=== PATIENT | male | born 1955 | race Caucasian/White ===

== ENCOUNTER 2017-07-07 19:29 | Inpatient (IN) | payer OTHER ==
[~2017-07-07] VITALS: Ht 177.8 cm; Wt 77.3 kg
[2017-07-07] MEDS ORDERED: ONDANSETRON 4 MG INJ IV STA (19:43)
[2017-07-07] MEDS ORDERED: KETOROLAC 30 MG INJ IV STA (19:43)
[2017-07-07] MEDS ORDERED: SOD CHLORIDE 0.9% 500 ML IV STA (19:43)
[2017-07-07] MEDS ORDERED: HYDROmorphONE 1 MG/ML SYG IV STA ×2 (19:43→21:23)
[2017-07-07 19:49] VITALS: Ht 177.8 cm; Wt 77.3 kg
[2017-07-07 20:19] LABS: BASOPHILS % 0.3 % (0.0-2.0); EOSINOPHILS # 0.1 10^3/ul (0.0-0.5); EOSINOPHILS % 0.8 % (0.0-7.0); HEMATOCRIT 41.1 % (42.0-52.0); HEMOGLOBIN 14.1 g/dl (14.0-18.0); LYMPHOCYTES # 1.4 10^3/ul (0.8-2.9); LYMPHOCYTES % 19.9 % (15.0-51.0); MEAN CORPUSCULAR HEMOGLOBIN 32.6 pg (29.0-33.0); MEAN CORPUSCULAR HGB CONC 34.3 g/dl (32.0-37.0); MEAN CORPUSCULAR VOLUME 95.1 fl (82.0-101.0); MEAN PLATELET VOLUME 9.4 fl (7.4-10.4); MONOCYTE # 0.6 10^3/ul (0.3-0.9); MONOCYTES % 8.4 % (0.0-11.0); NEUTROPHILS % 70.5 % (39.0-77.0); PLATELET COUNT 278 10^3/UL (140-415); RED BLOOD COUNT 4.32 10^6/ul (4.70-6.10); RED CELL DISTRIBUTION WIDTH 12.5 % (11.5-14.5); WHITE BLOOD COUNT 7.1 10^3/ul (4.8-10.8)
--- NOTE | 2017-07-07 20:36 | ERA ---
ER Documentation Chief Complaint Date/Time DATE: 07/07/17 TIME: 20:32 Chief Complaint RIGHT LOWER SEVERE ABDOMINAL PAIN, GUARDING UNABLE TO SIT UPRIGHT LONG HPI 62-year-old gentleman prior history of kidney stones, neuroblastoma presented to the emergency room with sudden onset of right lower quadrant abdominal pain. The patient has been in the hospital visiting a friend and has not been eating and drinking well. He notes that just prior to arrival a sharp pain to the right inguinal region and now severe 10 out of 10 colicky pain. He denies any testicular pain fevers or chills hematuria dysuria urgency or frequency. ROS All systems reviewed and are negative except as per history of present illness. Allergies Allergies: Coded Allergies: Penicillins (Unverified Allergy, Unknown, 07/07/17) PMhx/Soc History of Surgery: Yes (LAURA, GASTRIC BYPASS) Anesthesia Reaction: No Hx Neurological Disorder: No Hx Respiratory Disorders: Yes (SLEEP APNEA) Hx Cardiac Disorders: No Hx Psychiatric Problems: No Hx Miscellaneous Medical Probl: No Hx Alcohol Use: No Hx Substance Use: No Hx Tobacco Use: No Smoking Status: Never smoker FmHx Family History: No diabetes Physical Exam Vitals Vital Signs Date Time Temp Pulse Resp B/P Pulse Ox O2 Delivery O2 Flow Rate FiO2 07/07/17 20:50 60 18 139/73 100 Room Air 07/07/17 19:49 98.7 70 17 153/74 97 Physical Exam General: Very uncomfortable Head: Normocephalic, atraumatic. Eyes: Pupils equally reactive, EOM intact ENT: Moist mucous membranes Neck: Supple, no lymphadenopathy Respiratory: Lungs clear bilaterally, no distress Cardiovascular: RRR, no murmurs, rubs, or gallops Abdominal: Soft, slight tenderness to the right lower quadrant just below McBurney's point : No inguinal hernia, bilateral descended testicles without focal tenderness or swelling MSK: No edema, no unilateral swelling, 5/5 strength Neurologic: Alert and oriented, moving all extremities, normal speech, no focal weakness, no cerebellar signs Skin: No rash Psych: Normal mood Result Diagram: 07/07/17199907/07/171999 Results 24 hrs Laboratory Tests Test 07/07/17 20:00 White Blood Count 7.110^3/ul Red Blood Count 4.3210^6/ul Hemoglobin 14.1g/dl Hematocrit 41.1% Mean Corpuscular Volume 95.1fl Mean Corpuscular Hemoglobin 32.6pg Mean Corpuscular Hemoglobin Concent 34.3g/dl Red Cell Distribution Width 12.5% Platelet Count 18999^3/UL Mean Platelet Volume 9.4fl Neutrophils % 70.5% Lymphocytes % 19.9% Monocytes % 8.4% Eosinophils % 0.8% Basophils % 0.3% Nucleated Red Blood Cells % 0.0/100WBC Neutrophils # 5.010^3/ul Lymphocytes # 1.410^3/ul Monocytes # 0.610^3/ul Eosinophils # 0.110^3/ul Basophils # 0.010^3/ul Nucleated Red Blood Cells # 0.010^3/ul Sodium Level 140mmol/L Potassium Level 4.2mmol/L Chloride Level 104mmol/L Carbon Dioxide Level 27mmol/L Anion Gap 13 Blood Urea Nitrogen 17mg/dl Creatinine 0.92mg/dl Glucose Level 106mg/dl Calcium Level 8.9mg/dl Total Bilirubin 0.2mg/dl Direct Bilirubin 0.00mg/dl Indirect Bilirubin 0.2mg/dl Aspartate Amino Transf (AST/SGOT) 29IU/L Alanine Aminotransferase (ALT/SGPT) 38IU/L Alkaline Phosphatase 116IU/L Total Protein 7.8g/dl Albumin 4.6g/dl Globulin 3.20g/dl Albumin/Globulin Ratio 1.43 Lipase 169U/L Current Medications Medications (Trade) Dose Ordered Sig/[place] Route PRN Reason Start Time Stop Time Status Last Admin Dose Admin Sodium Chloride (NS) 500 ml @ 500 mls/hr Q1H STAT IV 07/07/17 19:43 07/07/17 20:42 DC 07/07/17 20:10 Hydromorphone HCl (Dilaudid) 1 mg ONCE STAT IV 07/07/17 19:43 07/07/17 19:45 DC 07/07/17 19:50 Ondansetron HCl (Zofran Inj) 4 mg ONCE STAT IV 07/07/17 19:43 07/07/17 19:45 DC 07/07/17 19:48 Ketorolac Tromethamine (Toradol) 30 mg ONCE STAT IV 07/07/17 19:43 07/07/17 19:45 DC 07/07/17 19:49 Hydromorphone HCl (Dilaudid) 1 mg ONCE STAT IV 07/07/17 21:23 07/07/17 21:24 DC Tamsulosin HCl (Flomax) 0.4 mg ONCE ONCE PO 07/07/17 21:30 07/07/17 21:31 DC Ondansetron HCl (Zofran Inj) 4 mg BRIDGE ORDER PRN IV NAUSEA AND/OR VOMITING 07/07/17 22:30 07/08/17 22:29 Acetaminophen (Tylenol Tab) 650 mg ER BRIDGE PRN PO MILD PAIN/FEVER 07/07/17 22:30 07/08/17 22:29 Procedures/MDM EKG, MONITORS, & DIAGNOSTIC IMAGING: CT abdomen and pelvis: IMPRESSION: 1. The irregular mass-like density in the right lower lobe posteriorly measuring 3.5 x 2.2 cm. This may be benign or malignant. 2. Dual lead permanent pacemaker with leads in the right atrium and right ventricle. 3. Status post cholecystectomy. 4. Obstructing 0.2 cm calculus in the distal right ureter just above the right ureteral vesicle junction. 5. Benign left renal cyst measuring 6.6 x 5.1 cm. 6. Diverticulosis of the colon without evidence of diverticulitis. 7. Prior gastric surgery and prior transverse colon surgery. 8. Degenerative changes of the spine. RPTAT: QQ LAB INTERPRETATION: No significant leukocytosis or urinary tract infection MEDICAL DECISION MAKING: The patient presents with sudden onset of colicky right lower quadrant pain. Differential includes ureteral colic, appendicitis, bowel obstruction. Her low clinical concern for acute testicular process such as torsion given normal exam. High suspicion is for renal stone or ureterolithiasis. The patient will benefit from CT imaging given his complex medical history and differential that includes appendicitis. ER COURSE: The patient was given pain control medication Patient continues to have pain requiring repeat dosing of pain medication. We discussed inpatient versus outpatient management and while his small stone is likely to pass with a trial of urination and passage the patient feels uncomfortable going home. Inpatient hospitalization for pain control be reasonable. The patient can have inpatient consultation with urology as needed. No indication emergently in the ER. The patient was notified of lung findings on CT. He was advised to follow-up with primary care physician and verbalizes understanding. I kept the patient and/or family informed of laboratory and diagnostic imaging results throughout the emergency room course. DISPOSITION PLAN: [facility] admission for management of intractable pain secondary to ureterolithiasis CONSULTATION: Accepting care team and consultations: I discussed the current laboratory data, diagnostic imaging and emergency care provided. Admitting team: Dr. Portillo Admitting team indication: Insurance directed Departure Diagnosis: Primary Impression: Ureterolithiasis Additional Impression: Right lower lobe lung mass Condition: Stable VIKTOR BENITO MD Jul 07, 2017 20:36
[2017-07-07 20:42] LABS: ALBUMIN 4.6 g/dl (3.3-4.9); ALBUMIN/GLOBULIN RATIO 1.43; BILIRUBIN,INDIRECT 0.2 mg/dl (0-1.1); BILIRUBIN,TOTAL 0.2 mg/dl (0.2-1.3); CALCIUM 8.9 mg/dl (8.4-10.2); CREATININE 0.92 mg/dl (0.61-1.24); POTASSIUM 4.2 mmol/L (3.5-5.1); TOTAL PROTEIN 7.8 g/dl (6.1-8.1)
--- NOTE | 2017-07-07 20:52 | RADRPT ---
PROCEDURE: CT Abdomen and Pelvis without contrast. CLINICAL INDICATION: Abdominal and pelvic pain. TECHNIQUE: CT scan of the abdomen and pelvis without contrast was performed. Coronal and sagittal reformatted images were obtained from the axial source images. Images were reviewed on a high[employer] PACS workstation. Total exam DLP is 1233.02 mGy-cm. CTDIvol is 18.59 mGy. One or more of the following dose reduction techniques were used: Automated exposure control, adjustment of the mA and/ or kV according to patient size, use of iterative reconstruction technique. COMPARISON: None. FINDINGS: There is an irregular mass-like density in the right lower lobe posteriorly measuring 3.5 x 2.2 cm. The lung bases are otherwise normal. There is no pleural effusion or pericardial effusion. There is a dual lead permanent pacemaker with leads in the right atrium and right ventricle. The heart size i s normal. The liver is normal in size and attenuation. There is no focal hepatic lesion. The gallbladder surgically absent with clips noted in the gallbladder bed. The bile ducts are normal . The spleen is normal in size. There is no focal splenic lesion. Both adrenals are normal with no enlargement or mass. The pancreas is unremarkable with no mass or evidence of pancreatitis. There is no solid renal mass or calculus. There is a 0.2 cm obstructing calculus in the distal right ureter just above the right ureteral vesicle junction. There is mild right hydronephrosis. There is no left hydronephrosis. There is no other urinary tract calculus. There is a benign cyst in the low er left kidney measuring 6.6 x 5.1 cm. The abdominal aorta is not dilated. There is no retroperitoneal lymphadenopathy or mass. There is no pelvic lymphadenopathy or mass. The bladder and distal ureters are normal. The periappendiceal region is unremarkable with no evidence of appendicitis. There is diverticulosis of the colon without evidence of diverticulitis. The bowel and mesentery are otherwise normal. There has been prior gastric surgery with surgical jareth noted. In addition, th ere has been prior surgery of the transverse colon with surgical jareth and clips. There is no free fluid or free gas. There are degenerative changes of the spine. There is no fracture or lytic lesion. IMPRESSION: 1. The irregular mass-like density in the right lower lobe posteriorly measuring 3.5 x 2.2 cm. This may be benign or malignant. 2. Dual lead permanent pacemaker with leads in the right atrium and right ventricle. 3. Status post cholecystectomy. 4. Obstructing 0.2 cm calculus in the distal right ureter just above the right ureteral vesicle courtney ction. 5. Benign left renal cyst measuring 6.6 x 5.1 cm. 6. Diverticulosis of the colon without evidence of diverticulitis. 7. Prior gastric surgery and prior transverse colon surgery. 8. Degenerative changes of the spine. RPTAT: QQ .Rolan Shelby MD, MD Date Time Electronically viewed and signed by .Rolan Shelby MD, MD on 07/07/2017 20:52 .R/
[2017-07-07] MEDS ORDERED: TAMSULOSIN (SR) 0.4 MG CAP PO ONE (21:30)
[2017-07-07] MEDS ORDERED: ONDANSETRON 4 MG INJ IV PRN (22:30)
[2017-07-07] MEDS ORDERED: ACETAMINOPHEN 325 MG TAB PO PRN (22:30)
[2017-07-07 22:33] LABS: ADD UMIC YES; UR ASCORBIC ACID NEGATIVE (NEGATIVE); UR BILIRUBIN (Dip) NEGATIVE (NEGATIVE); UR BLOOD (Dip) 3+ mg/dL (NEGATIVE); UR CLARITY SLIGHTLY CLOUDY (CLEAR); UR COLOR YELLOW (YELLOW); UR GLUCOSE (Dip) NEGATIVE (NEGATIVE); UR KETONES (Dip) NEGATIVE (NEGATIVE); UR LEUKOCYTE ESTERASE (Dip) NEGATIVE Leu/ul (NEGATIVE); UR MUCUS MANY /HPF (NONE SEEN); UR NITRITE (Dip) NEGATIVE (NEGATIVE); UR RBC 137 /HPF (0-5); UR TOTAL PROTEIN (Dip) NEGATIVE (NEGATIVE); UR UROBILINOGEN (Dip) 1+ mg/dL (NEGATIVE)
[2017-07-07 23:00] VITALS: BP 152/76; RESP 19
[2017-07-07] MEDS ORDERED: POTA5TAB PO (23:26)
[2017-07-07] MEDS ORDERED: ESZO3TAB PO (23:26)
[2017-07-07] MEDS ORDERED: METH36TA4 PO (23:26)
[2017-07-07] MEDS ORDERED: ESOM40CA PO (23:26)
[2017-07-07] MEDS ORDERED: CYAN500T46 PO (23:26)
[2017-07-07] MEDS ORDERED: CHOL500062 PO (23:26)
[2017-07-07] MEDS ORDERED: LAMO200T PO (23:26)
[2017-07-08] MEDS ORDERED: ZOLPIDEM 5 MG TAB PO PRN ×2 (00:30)
[2017-07-08] MEDS ORDERED: ONDANSETRON 4 MG INJ IV PRN (00:30)
[2017-07-08] MEDS: SOD CHLORIDE 0.9% 1,000 ML IV SCH ×5 (00:58→21:34)
[2017-07-08] MEDS ORDERED: LORAZEPAM 2 MG INJ IV ONE (01:30)
[2017-07-08] MEDS: morphine 4 MG/ML VIAL IV PRN ×2 (01:31→11:59)
[2017-07-08 02:39] VITALS: BP 150/82; RESP 18
[2017-07-08 07:28] LABS: BASOPHILS % 0.3 % (0.0-2.0); EOSINOPHILS % 0.1 % (0.0-7.0); HEMATOCRIT 37.5 % (42.0-52.0); HEMOGLOBIN 12.8 g/dl (14.0-18.0); LYMPHOCYTES # 0.7 10^3/ul (0.8-2.9); LYMPHOCYTES % 9.5 % (15.0-51.0); MEAN CORPUSCULAR HEMOGLOBIN 32.8 pg (29.0-33.0); MEAN CORPUSCULAR HGB CONC 34.1 g/dl (32.0-37.0); MEAN CORPUSCULAR VOLUME 96.2 fl (82.0-101.0); MEAN PLATELET VOLUME 9.4 fl (7.4-10.4); MONOCYTE # 0.7 10^3/ul (0.3-0.9); MONOCYTES % 8.8 % (0.0-11.0); NEUTROPHIL # 6.3 10^3/ul (1.6-7.5); PLATELET COUNT 195 10^3/UL (140-415); RED CELL DISTRIBUTION WIDTH 12.8 % (11.5-14.5); WHITE BLOOD COUNT 7.8 10^3/ul (4.8-10.8)
--- NOTE | 2017-07-08 07:46 | HP ---
Date/Time of Note Date/Time of Note DATE: 07/08/17 TIME: 07:30 Assessment/Plan VTE Prophylaxis VTE Prophylaxis Intervention: SCD's Lines/Catheters IV [facility]from [facility] Saline Lock Assessment/Plan Assessment/Plan 1. Right distal ureteral obstructing calculus -IV fluids -Flomax -Straining of urine -Urology consult -Pain management 2. Right lower lung mass -Patient reported being told that he had abnormal growth on the left side of his lung 35 years ago, but not on the right. His recent chest imaging is from 4 or 5 years ago at [facility] where he was intubated for gastric bypass surgery. -Will attempt to get records of his chest imaging from [facility], then will obtain additional chest imaging -Pulmonary consult 3. History of pacemaker -No acute issue here HPI/ROS Admit Date/Time Admit Date/Time Jul 07, 2017 at 22:06 Hx of Present Illness This is a 62-year-old male with a history of left nephrolithiasis, pacemaker, gastric bypass surgery, nasal neuroblastoma status post surgical removal in 2009 and probable history of pericarditis. Patient has been at the bedside of family member that is admitted here to [facility] for the past 4 days. Today while he was at the patient's room, he started experiencing right lower quadrant abdominal pain for which he was sent to the ER. Denied nausea/vomiting, fever or chills. CT abdomen pelvis showed Obstructing 0.2 cm calculus in the distal right ureter just above the right ureteral vesicle junction, irregular mass-like density in the right lower lobe posteriorly measuring 3.5 x 2.2 cm, diverticulosis without diverticulitis and prior gastric surgery and prior transverse colon surgery. He said he was diagnosed with his left kidney/ureteral stone 5 years ago which was managed to with extracorporeal shockwave therapy. No stent was placed at that time. He also stated that about 35 years ago he was told that he had abnormal growth on the left side of his lungs. PMH/Family/Social Social History Smoking Status: Never smoker Exam/Review of Systems Vital Signs Vitals Vital Signs Date Time Temp Pulse Resp B/P Pulse Ox O2 Delivery O2 Flow Rate FiO2 07/08/17 02:39 97.4 73 18 150/82 96 07/07/17 22:15 Room Air Intake and Output 07/07/17 07/07/17 07/08/17 15:00 23:00 07:00 Intake Total 900 ml Balance 900 ml Exam Constitutional: alert, oriented, well developed Head: atraumatic, normocephalic Eyes: EOMI, PERRL Respiratory: clear to auscultation, normal air movement Cardiovascular: nl pulses, regular rate and rhythm Gastrointestinal: other (Mild right lower quadrant tenderness, with no guarding no rigidity), soft Extremities: normal pulses Labs Result Diagram: 07/07/17199907/07/171999 Medications Medications Current Medications Lamotrigine (Lamictal) 200 mg DAILY PO ; Start 07/08/17 at 09:00 Potassium Citrate (Urocit-K) 5 meq DAILY PO ; Start 07/08/17 at 09:00 Miscellaneous Information 36 mg DAILY XX ; Start 07/08/17 at 09:00; Status UNV Famotidine 20 mg 20 mg DAILY PO ; Start 07/08/17 at 09:00 Sodium Chloride (NS) 1,000 ml @ 150 mls/hr Q6H40M IV Last administered on 00:58; Admin Dose 150 MLS/HR; Start 07/08/17 at 00:30 Tamsulosin HCl (Flomax) 0.4 mg HS PO ; Start 07/08/17 at 21:00 Morphine Sulfate (morphine) 4 mg Q4H PRN IV pain Last administered on 01:31; Admin Dose 4 MG; Start 07/08/17 at 00:30 Ondansetron HCl (Zofran Inj) 4 mg Q6H PRN IV NAUSEA AND/OR VOMITING; Start 07/15 at 00:30 Lorazepam (Ativan) 1 mg Q4H PRN PO anxiety; Start 07/08/17 at 01:30 Influenza Virus Vaccine (Fluzone) 0.5 ml ONCE ONCE IM* ; Start 07/09/17 at 09: 00; Stop 07/09/17 at 09:01 KAREEN CORLEY MD Jul 08, 2017 07:43
[2017-07-08 07:50] LABS: ALBUMIN 3.5 g/dl (3.3-4.9); ALBUMIN/GLOBULIN RATIO 1.16; BILIRUBIN,INDIRECT 0.6 mg/dl (0-1.1); BILIRUBIN,TOTAL 0.6 mg/dl (0.2-1.3); CALCIUM 8.3 mg/dl (8.4-10.2); CREATININE 1.22 mg/dl (0.61-1.24); MAGNESIUM 1.8 mg/dl (1.7-2.5); PHOSPHORUS 3.6 mg/dl (2.5-4.9); POTASSIUM 4.4 mmol/L (3.5-5.1); TOTAL PROTEIN 6.5 g/dl (6.1-8.1)
[2017-07-08 08:00] VITALS: BP 113/55; PULSE 79; RESP 16
[2017-07-08] MEDS: POTASSIUM CITRATE (SR) 5 MEQ TAB PO SCH (08:41)
[2017-07-08] MEDS: FAMOTIDINE 20 MG TAB PO SCH (08:41)
[2017-07-08] MEDS: LAMOTRIGINE 100 MG TAB PO SCH (08:41)
[2017-07-08] MEDS ORDERED: CITRACAL PO (08:48)
[2017-07-08] MEDS ORDERED: METHYLPHENIDATE HCL 36 MG XX SCH (09:00)
[2017-07-08 14:00] VITALS: BP 118/59; RESP 18
--- NOTE | 2017-07-08 16:10 | PN ---
Date/Time of Note Date/Time of Note DATE: 07/08/17 TIME: 16:01 Assessment/Plan VTE Prophylaxis VTE Prophylaxis Intervention: SCD's Lines/Catheters IV Catheter Type (from Nrsg): Peripheral IV Assessment/Plan Assessment/Plan 1. Right distal ureteral obstructing calculus, IVF, flomax, pain management 2. Right lower lung mass, discussed with Dr. Shelby, will do CT with contrast after stone is out 3. History of pacemaker, No acute issue here Subjective 24 Hr Interval Summary Free Text/Dictation still with intermittent pain Exam/Review of Systems Vital Signs Vitals Vital Signs Date Time Temp Pulse Resp B/P Pulse Ox O2 Delivery O2 Flow Rate FiO2 07/08/17 14:00 98.1 62 18 118/59 95 07/08/17 08:00 Room Air Intake and Output 07/07/17 07/07/17 07/08/17 15:00 23:00 07:00 Intake Total 900 ml Balance 900 ml Exam Constitutional: alert, oriented, well developed Psych: nl mood/affect, no complaints Head: atraumatic, normocephalic Eyes: EOMI, nl conjunctiva, nl lids ENMT: nl external ears & nose, nl lips & teeth, nl nasal mucosa & septum Neck: jvd, non-tender, supple Respiratory: clear to auscultation, normal air movement, No congested cough, No crackles/rales, No diminished breath sounds, No intercostal retraction, No labored breathing, No other, No respirations, No tactile fremitus, No wheezing Cardiovascular: nl pulses, regular rate and rhythm, No S3, No S4, No bruits, No diastolic murmur, No edema, No gallop, No irregular rhythm, No jugular venous distention (JVD), No murmurs/extra sounds, No other, No rub, No systolic murmur Gastrointestinal: nl liver, spleen, non-tender, soft, No ascites, No bowel sounds, No distended, No firm, No hepatomegaly, No mass , No other, No rebound or guarding, No splenomegaly, No surgical scars, No tender Musculoskeletal: nl extremities to inspection, No joint tenderness, No muscle tone, No muscle weakness, No nl gait and stance, No other, No range of motion, No spine non-tender, No swelling Extremities: normal pulses, No calf tenderness, No clubbing, No cyanosis, No edema, No other, No palpable cord, No pitting pedal edema, No tenderness Neurological: POWDER SHOVELER II-XII intact, nl speech, nl strength Results Result Diagram: 07/08/17 0616 07/08/17 0616 Results 24 hrs Laboratory Tests Test 07/07/17 20:00 07/07/17 22:00 07/08/17 06:16 White Blood Count 7.1 7.8 Red Blood Count 4.32 L 3.90 L Hemoglobin 14.1 12.8 L Hematocrit 41.1 L 37.5 L Mean Corpuscular Volume 95.1 96.2 Mean Corpuscular Hemoglobin 32.6 32.8 Mean Corpuscular Hemoglobin Concent 34.3 34.1 Red Cell Distribution Width 12.5 12.8 Platelet Count 278 195 # Mean Platelet Volume 9.4 9.4 Neutrophils % 70.5 81.0 H Lymphocytes % 19.9 9.5 L Monocytes % 8.4 8.8 Eosinophils % 0.8 0.1 Basophils % 0.3 0.3 Nucleated Red Blood Cells % 0.0 0.0 Neutrophils # 5.0 6.3 Lymphocytes # 1.4 0.7 L Monocytes # 0.6 0.7 Eosinophils # 0.1 0.0 Basophils # 0.0 0.0 Nucleated Red Blood Cells # 0.0 0.0 Sodium Level 140 136 Potassium Level 4.2 4.4 Chloride Level 104 104 Carbon Dioxide Level 27 28 Anion Gap 13 8 Blood Urea Nitrogen 17 18 Creatinine 0.92 1.22 Glucose Level 106 102 Calcium Level 8.9 8.3 L Total Bilirubin 0.2 0.6 Direct Bilirubin 0.00 0.00 Indirect Bilirubin 0.2 0.6 Aspartate Amino Transf (AST/SGOT) 29 31 Alanine Aminotransferase (ALT/SGPT) 38 33 Alkaline Phosphatase 116 91 Total Protein 7.8 6.5 # Albumin 4.6 3.5 # Globulin 3.20 3.00 Albumin/Globulin Ratio 1.43 1.16 Lipase 169 Urine Color YELLOW Urine Clarity SLIGHTLY CLOUDY A Urine pH 5.0 Urine Specific Mitchell 1.030 Urine Ketones NEGATIVE Urine Nitrite NEGATIVE Urine Bilirubin NEGATIVE Urine Urobilinogen 1+ H Urine Leukocyte Esterase NEGATIVE Urine Microscopic RBC 137 H Urine Microscopic WBC 3 Urine Mucus MANY A Urine Hemoglobin 3+ H Urine Glucose NEGATIVE Urine Total Protein NEGATIVE Phosphorus Level 3.6 Magnesium Level 1.8 Medications Medications Current Medications Lamotrigine (Lamictal) 200 mg DAILY PO Last administered on 07/08/17 08:41; Admin Dose 200 MG; Start 07/08/17 at 09:00 Potassium Citrate (Urocit-K) 5 meq DAILY PO Last administered on 07/08/17 08: 41; Admin Dose 5 MEQ; Start 07/08/17 at 09:00 Miscellaneous Information 36 mg DAILY XX ; Start 07/08/17 at 09:00; Status UNV Famotidine 20 mg 20 mg DAILY PO Last administered on 07/08/17 08:41; Admin Dose 20 MG; Start 07/08/17 at 09:00 Sodium Chloride (NS) 1,000 ml @ 150 mls/hr Q6H40M IV Last administered on 08:42; Admin Dose 150 MLS/HR; Start 07/08/17 at 00:30 Tamsulosin HCl (Flomax) 0.4 mg HS PO ; Start 07/08/17 at 21:00 Morphine Sulfate (morphine) 4 mg Q4H PRN IV pain Last administered on 11:59; Admin Dose 4 MG; Start 07/08/17 at 00:30 Ondansetron HCl (Zofran Inj) 4 mg Q6H PRN IV NAUSEA AND/OR VOMITING; Start 07/15 at 00:30 Lorazepam (Ativan) 1 mg Q4H PRN PO anxiety; Start 07/08/17 at 01:30 Influenza Virus Vaccine (Fluzone) 0.5 ml ONCE ONCE IM* ; Start 07/09/17 at 09: 00; Stop 07/09/17 at 09:01 DAVY KUO MD Jul 08, 2017 16:10
[2017-07-08] MEDS: LORAZEPAM 1 MG TAB PO PRN (16:33)
[2017-07-08 20:10] VITALS: BP 126/72; RESP 18
[2017-07-08] MEDS: TAMSULOSIN (SR) 0.4 MG CAP PO SCH (21:34)
[2017-07-09 02:38] VITALS: BP 121/68; RESP 18
[2017-07-09] MEDS: SOD CHLORIDE 0.9% 1,000 ML IV SCH ×4 (03:51→17:25)
[2017-07-09 08:01] VITALS: BP 136/68; RESP 17
[2017-07-09] MEDS ORDERED: INFLUENZA VIRUS VACCINE 0.5 ML (DISPENSING) IM* ONE (09:00)
[2017-07-09] MEDS: LAMOTRIGINE 100 MG TAB PO SCH (09:24)
[2017-07-09] MEDS: POTASSIUM CITRATE (SR) 5 MEQ TAB PO SCH (09:24)
[2017-07-09] MEDS: FAMOTIDINE 20 MG TAB PO SCH (09:24)
[2017-07-09] MEDS: DOCUSATE SODIUM 100 MG CAP PO SCH ×2 (10:57→21:39)
[2017-07-09] MEDS: CALCIUM CARBONATE 1.25 GM TAB PO SCH (11:03)
--- NOTE | 2017-07-09 15:33 | PN ---
Date/Time of Note Date/Time of Note DATE: 07/09/17 TIME: 15:32 Assessment/Plan VTE Prophylaxis VTE Prophylaxis Intervention: SCD's Lines/Catheters IV Catheter Type (from Nrsg): Peripheral IV Assessment/Plan Assessment/Plan 1. Right distal ureteral obstructing calculus, IVF, flomax, pain management, renal ultrasound tomorrow if not stone passed 2. Right lower lung mass, discussed with Dr. Shelby, will do CT with contrast after stone is out 3. History of pacemaker, No acute issue here Subjective 24 Hr Interval Summary Free Text/Dictation minimal pain but no stone passed yet Exam/Review of Systems Vital Signs Vitals Vital Signs Date Time Temp Pulse Resp B/P Pulse Ox O2 Delivery O2 Flow Rate FiO2 07/09/17 08:01 98.7 63 17 136/68 95 07/08/17 08:00 Room Air Intake and Output 07/08/17 07/08/17 07/09/17 15:00 23:00 07:00 Intake Total 2060 ml 2130 ml Output Total 550 ml 1100 ml Balance 1510 ml 1030 ml Exam Constitutional: alert, oriented, well developed Psych: nl mood/affect, no complaints Head: atraumatic, normocephalic Eyes: EOMI, nl conjunctiva, nl lids ENMT: nl external ears & nose, nl lips & teeth, nl nasal mucosa & septum Neck: non-tender, supple Respiratory: clear to auscultation, normal air movement, No congested cough, No crackles/rales, No diminished breath sounds, No intercostal retraction, No labored breathing, No other, No respirations, No tactile fremitus, No wheezing Cardiovascular: nl pulses, regular rate and rhythm, No S3, No S4, No bruits, No diastolic murmur, No edema, No gallop, No irregular rhythm, No jugular venous distention (JVD), No murmurs/extra sounds, No other, No rub, No systolic murmur Gastrointestinal: nl liver, spleen, non-tender, soft, No ascites, No bowel sounds, No distended, No firm, No hepatomegaly, No mass , No other, No rebound or guarding, No splenomegaly, No surgical scars, No tender Musculoskeletal: nl extremities to inspection, No joint tenderness, No muscle tone, No muscle weakness, No nl gait and stance, No other, No range of motion, No spine non-tender, No swelling Extremities: normal pulses, No calf tenderness, No clubbing, No cyanosis, No edema, No other, No palpable cord, No pitting pedal edema, No tenderness Neurological: AMBULANCE OFFICER II-XII intact, nl mental status, nl speech, nl strength Skin: nl turgor Lymph: nl lymph nodes Results Result Diagram: 07/08/1716 07/08/1716 Medications Medications Current Medications Lamotrigine (Lamictal) 200 mg DAILY PO Last administered on 07/09/17 09:24; Admin Dose 200 MG; Start 07/08/17 at 09:00 Potassium Citrate (Urocit-K) 5 meq DAILY PO Last administered on 07/09/17 09: 24; Admin Dose 5 MEQ; Start 07/08/17 at 09:00 Miscellaneous Information 36 mg DAILY XX ; Start 07/08/17 at 09:00; Status UNV Famotidine 20 mg 20 mg DAILY PO Last administered on 07/09/17 09:24; Admin Dose 20 MG; Start 07/08/17 at 09:00 Sodium Chloride (NS) 1,000 ml @ 150 mls/hr Q6H40M IV Last administered on 10:57; Admin Dose 150 MLS/HR; Start 07/08/17 at 00:30 Tamsulosin HCl (Flomax) 0.4 mg HS PO Last administered on 07/08/17 21:34; Admin Dose 0.4 MG; Start 07/08/17 at 21:00 Morphine Sulfate (morphine) 4 mg Q4H PRN IV pain Last administered on 11:59; Admin Dose 4 MG; Start 07/08/17 at 00:30 Ondansetron HCl (Zofran Inj) 4 mg Q6H PRN IV NAUSEA AND/OR VOMITING; Start 07/15 at 00:30 Lorazepam (Ativan) 1 mg Q4H PRN PO anxiety Last administered on 07/08/17 16: 33; Admin Dose 1 MG; Start 07/08/17 at 01:30 Calcium Carbonate (Oyster Shell Calcium) 1.25 gm DAILY PO ; Start 07/09/17 at 12:00 Miscellaneous Information (*Order Clarification Bulletin) MEDICATION REQUIRES CLARIFICATI... Q8H XX ; Start 07/09/17 at 08:00 Docusate Sodium (Colace) 100 mg BID PO Last administered on 07/09/17t 10:57; Admin Dose 100 MG; Start 07/09/17 at 10:00 DAVY KUO MD Jul 09, 2017 15:33
[2017-07-09 15:37] VITALS: BP 158/89; RESP 20
[2017-07-09] MEDS: LORAZEPAM 1 MG TAB PO PRN (17:25)
[2017-07-09 20:38] VITALS: BP 128/67; RESP 18
[2017-07-09] MEDS: morphine 4 MG/ML VIAL IV PRN (21:39)
[2017-07-09] MEDS: TAMSULOSIN (SR) 0.4 MG CAP PO SCH (21:39)
[2017-07-10] MEDS: LORAZEPAM 1 MG TAB PO PRN (00:13)
[2017-07-10] MEDS: SOD CHLORIDE 0.9% 1,000 ML IV SCH ×4 (00:14→17:54)
[2017-07-10 02:38] VITALS: BP 133/83; RESP 18
[2017-07-10 06:18] LABS: CALCIUM 8.2 mg/dl (8.4-10.2); CREATININE 1.31 mg/dl (0.61-1.24)
[2017-07-10 07:26] VITALS: BP 112/62; RESP 18
[2017-07-10] MEDS: CALCIUM CARBONATE 1.25 GM TAB PO SCH (09:21)
[2017-07-10] MEDS: DOCUSATE SODIUM 100 MG CAP PO SCH ×2 (09:21→21:50)
[2017-07-10] MEDS: POTASSIUM CITRATE (SR) 5 MEQ TAB PO SCH (09:21)
[2017-07-10] MEDS: FAMOTIDINE 20 MG TAB PO SCH (09:21)
[2017-07-10] MEDS: LAMOTRIGINE 100 MG TAB PO SCH (09:22)
--- NOTE | 2017-07-10 14:26 | PN ---
Date/Time of Note Date/Time of Note DATE: 07/10/17 TIME: 14:23 Assessment/Plan VTE Prophylaxis VTE Prophylaxis Intervention: SCD's Lines/Catheters IV Catheter Type (from Nrsg): Peripheral IV Assessment/Plan Assessment/Plan 1. Right distal ureteral obstructing calculus, IVF, flomax, pain management, renal ultrasound, urology 2. Right lower lung mass, discussed with Dr. Shelby, will do CT with contrast after stone is out 3. History of pacemaker, No acute issue here 4. Acute renal injury from ureteral stone, follow up with BMP/US Subjective 24 Hr Interval Summary Free Text/Dictation minimal pain better on anxiety denies homicidal or suicidal Exam/Review of Systems Vital Signs Vitals Vital Signs Date Time Temp Pulse Resp B/P Pulse Ox O2 Delivery O2 Flow Rate FiO2 07/10/17 07:26 98.4 61 18 112/62 96 07/08/17 08:00 Room Air Intake and Output 07/09/17 07/09/17 07/10/17 15:00 23:00 07:00 Intake Total 2020 ml 870 ml 1580 ml Output Total 900 ml 1200 ml Balance 2020 ml -30 ml 380 ml Exam Constitutional: alert, oriented, well developed Head: atraumatic, normocephalic Eyes: EOMI, nl conjunctiva, nl lids ENMT: nl external ears & nose, nl lips & teeth, nl nasal mucosa & septum Neck: non-tender, supple Respiratory: clear to auscultation, normal air movement, No congested cough, No crackles/rales, No diminished breath sounds, No intercostal retraction, No labored breathing, No other, No respirations, No tactile fremitus, No wheezing Cardiovascular: nl pulses, regular rate and rhythm, No S3, No S4, No bruits, No diastolic murmur, No edema, No gallop, No irregular rhythm, No jugular venous distention (JVD), No murmurs/extra sounds, No other, No rub, No systolic murmur Gastrointestinal: nl liver, spleen, non-tender, soft, No ascites, No bowel sounds, No distended, No firm, No hepatomegaly, No mass , No other, No rebound or guarding, No splenomegaly, No surgical scars, No tender Musculoskeletal: nl extremities to inspection, No joint tenderness, No muscle tone, No muscle weakness, No nl gait and stance, No other, No range of motion, No spine non-tender, No swelling Extremities: normal pulses, No calf tenderness, No clubbing, No cyanosis, No edema, No other, No palpable cord, No pitting pedal edema, No tenderness Neurological: RAILROADER II-XII intact, nl mental status, nl speech, nl strength Skin: nl turgor Lymph: nl lymph nodes Results Result Diagram: 07/08/17 0616 07/10/17 0521 Results 24 hrs Laboratory Tests Test 07/10/17 05:21 Sodium Level 140 Potassium Level 4.0 Chloride Level 108 Carbon Dioxide Level 28 Anion Gap 8 Blood Urea Nitrogen 14 Creatinine 1.31 H Glucose Level 83 Calcium Level 8.2 L Medications Medications Current Medications Lamotrigine (Lamictal) 200 mg DAILY PO Last administered on 07/10/17 09:22; Admin Dose 200 MG; Start 07/08/17 at 09:00 Potassium Citrate (Urocit-K) 5 meq DAILY PO Last administered on 07/10/17 09: 21; Admin Dose 5 MEQ; Start 07/08/17 at 09:00 Miscellaneous Information 36 mg DAILY XX ; Start 07/08/17 at 09:00; Status UNV Famotidine 20 mg 20 mg DAILY PO Last administered on 07/10/17 09:21; Admin Dose 20 MG; Start 07/08/17 at 09:00 Sodium Chloride (NS) 1,000 ml @ 150 mls/hr Q6H40M IV Last administered on 12:45; Admin Dose 150 MLS/HR; Start 07/08/17 at 00:30 Tamsulosin HCl (Flomax) 0.4 mg HS PO Last administered on 07/09/17 21:39; Admin Dose 0.4 MG; Start 07/08/17 at 21:00 Morphine Sulfate (morphine) 4 mg Q4H PRN IV pain Last administered on 21:39; Admin Dose 4 MG; Start 07/08/17 at 00:30 Ondansetron HCl (Zofran Inj) 4 mg Q6H PRN IV NAUSEA AND/OR VOMITING; Start 07/15 at 00:30 Lorazepam (Ativan) 1 mg Q4H PRN PO anxiety Last administered on 07/10/17 00: 13; Admin Dose 1 MG; Start 07/08/17 at 01:30 Calcium Carbonate (Oyster Shell Calcium) 1.25 gm DAILY PO Last administered on 07/10/17 09:21; Admin Dose 1.25 GM; Start 07/09/17 at 12:00 Miscellaneous Information (*Order Clarification Bulletin) MEDICATION REQUIRES CLARIFICATI... Q8H XX ; Start 07/09/17 at 08:00 Docusate Sodium (Colace) 100 mg BID PO Last administered on 07/10/17 09:21; Admin Dose 100 MG; Start 07/09/17 at 10:00 DAVY KUO MD Jul 10, 2017 14:26
--- NOTE | 2017-07-10 15:17 | RADRPT ---
PROCEDURE: Retroperitoneal US. CLINICAL INDICATION: Flank pain TECHNIQUE: Multiple sonographic images of the kidneys and retroperitoneum were obtained. The imag es were reviewed on a PACS workstation. COMPARISON: CT 07/07/2017 FINDINGS: The kidneys are normal in size, contour, cortical thickness and cortical echogenicity. The right kidney measures 12 cm. The left kidney measures 11.5 cm. There are 2 small simple cysts in the right kidney measuring up to 2.2 cm. There is a large simple cyst in the lower pole of the left kidney measuring 5.6 cm. No kidney stones are visualized. There is no evidence for hydronephrosis. The urinary bladder is normal. RPTAT: AA IMPRESSION: No evidence of hydronephrosis. Bilateral simple kidney cysts. .Raman Orozco MD, MD Date Time Electronically viewed and signed by .Raman Orozco MD, MD on 07/10/2017 15:17 .S/
[2017-07-10] MEDS ORDERED: BISACODYL (EC) 5 MG TAB PO ONE (16:30)
[2017-07-10 18:09] VITALS: BP 171/97; RESP 20
--- NOTE | 2017-07-10 20:39 | RADRPT ---
PROCEDURE: XR Abdomen. CLINICAL INDICATION: Abdomen pain. TECHNIQUE: AP supine abdomen x-ray. COMPARISON: CT scan of the abdomen pelvis 10 07/07/2017 FINDINGS: The bowel gas pattern is normal with no evidence of obstruction. Surgical clips are present in the upper abdomen. There are no abnormal calcifications overlying the urinary tracts. The osseus structures are unremarkable. IMPRESSION: 1. No evidence of obstruction. 2. Prior upper abdomen surgery. 3. Otherwise unremarkable supine abdomen radiograph. RPTAT: QQ .Rolan Shelby MD, MD Date Time Electronically viewed and signed by .Rolan Shelby MD, MD on 07/10/2017 20:39 .R/
--- NOTE | 2017-07-10 21:16 | CONS ---
DATE OF ADMISSION: 07/07/2017 DATE OF CONSULTATION: 07/10/2017 REQUESTING PHYSICIANS: Dr. Portillo and Dr. Ramirez. HISTORY OF PRESENT ILLNESS: This is a 62-year-old male who came in to [place] to help a family heather smith who is sick and in fact the family member is here at [facility] 5th floor. While the patient was helping his relative, he suddenly felt severe pain in the right side, and the patient was taken to the emergency room where he underwent a CT scan of the abdomen and pelvis and t hat showed a 2 mm stone in the distal right ureter. Therefore, the patient was admitted, and the pa tient has been voiding well and the straining of urine has not resulted in any stone passing yet. PAST MEDICAL HISTORY: The past medical history of this patient is he has had a history of kidney st one many years back and at that time, he did pass it. They gave him lithotripsy to it. The patient does have a history of gastric bypass surgery and has been on calcium carbonate and also on potassi um citrate to try to prevent a kidney stone again. 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 It seems the patient was wolfgang that they found it too early and also they told him that he may well have been cured. When he was in [place], he also was found to have some lung issues and probably some mucus, and the CT scan that he had here showed an area in th e right lung at the posterior area that may be a benign tumor; however, the patient does have the re port from his x-rays at [place] and it may be related to the same issue that he has had before. I discussed that with him, and he will take a copy of the CT scan and give it to his doctor in [facility] and they could compare them and see if this is something that needs to be further worked up or if it is the same thing that he has had before. The patient's other significant past medical history a gain is gastric bypass surgery, the kidney stone on the left side before and the history of pacemake r. The patient also has had a cholecystectomy, and there is a left renal cyst measuring 6.6 cm x 5. 1 cm, diverticulosis of the colon without evidence of diverticulitis, gastric bypass surgery and deg enerative changes of the spine. The mass in the lung is irregular and in the right lower lobe poste riorly measuring 3.5 x 2.2 cm. MEDICATIONS: That he is on right now include calcium carbonate, Colace, tamsulosin, , potassiu m citrate, Pepcid, Ativan, morphine and Ambien. PHYSICAL EXAMINATION: GENERAL: Reveals a 62-year-old male who at present seems to be comfortable. VITAL SIGNS: His temperature is 98.0, pulse is 65, respirations 20, blood pressure 171/97. ABDOMEN: Soft and no abdominal mass is palpable. GENITALIA: External genitalia are normal. EXTREMITIES: Reveal no edema. LABORATORY DATA: His CBC shows a white count of 7.8, hemoglobin 12.8, hematocrit 37.5, platelet cou nt 195,000. BUN is 14, creatinine 1.31. Electrolytes are normal. The urinalysis showed 3+ occult blood, much mucus in the urine. IMPRESSION: Distal right ureteral stone measuring about 2 mm in size. RECOMMENDATION: This patient should be able to pass the stone, if he has not passed it yet. He alr edmond had a KUB and the report on that is still pending. We will repeat the KUB in a.m. and also con tinue his pain medication and strain the urine. I discussed with him the issue of his lungs and he got the report from [place] and most likely what would happen is that he needs to have a copy of tx s CT scan here and the report of the CT scan and then he could have it checked in [place] and [place] re it to his prior workup that he has had [place] for the same issue. Urologically-mcguire, just long jack a lot of water, pain medication, strain the urine and he should be able to pass this stone as the stone is 2 mm in size. Dictated By: ROGELIO SANCHEZ/KATHE Conf#: [id number] DID#: [id number]
[2017-07-10] MEDS: TAMSULOSIN (SR) 0.4 MG CAP PO SCH (21:50)
[2017-07-10] MEDS: morphine 4 MG/ML VIAL IV PRN (21:50)
[2017-07-10 21:55] VITALS: BP 145/82; RESP 16
[2017-07-11] MEDS: SOD CHLORIDE 0.9% 1,000 ML IV SCH ×4 (01:31→21:39)
[2017-07-11 03:04] VITALS: BP 147/78; RESP 16
[2017-07-11 08:13] VITALS: BP 134/77; RESP 17
--- NOTE | 2017-07-11 09:17 | PN ---
DATE: 07/11/2017 SUBJECTIVE: The patient had a pain during the night, and he feels pressure in the suprapubic area. He does have a distal right ureteral stone measuring about 2 mm near the ureterovesical junction, b ut he has not passed it yet. OBJECTIVE: VITAL SIGNS: His temperature is 98.1, blood pressure 134/77, respirations 17 and the pulse is 63. GENERAL: The head and neck are unremarkable. ABDOMEN: Soft. There is some suprapubic tenderness. External genitalia normal. EXTREMITIES: No edema. LABORATORY DATA: CBC shows a white count 7.8, hemoglobin 12.8. The BUN is 14, creatinine 1.31. El ectrolytes are normal. The patient had a KUB and that did not show the stone as reported by the rad iologist. IMPRESSION: Distal right ureteral stone. PLAN: To continue the straining of the urine. Continue the Flomax and pain medication and push flu ids and hopefully he will pass the stone. Dictated By: ROGELIO SANCHEZ/KATHE Conf#: [id number] DID#: [id number]
[2017-07-11] MEDS: LAMOTRIGINE 100 MG TAB PO SCH (09:24)
[2017-07-11] MEDS: FAMOTIDINE 20 MG TAB PO SCH (09:24)
[2017-07-11] MEDS: POTASSIUM CITRATE (SR) 5 MEQ TAB PO SCH (09:24)
[2017-07-11] MEDS: DOCUSATE SODIUM 100 MG CAP PO SCH ×2 (09:24→21:39)
[2017-07-11] MEDS: CALCIUM CARBONATE 1.25 GM TAB PO SCH (09:24)
--- NOTE | 2017-07-11 10:59 | RADRPT ---
PROCEDURE: XR Abdomen 1 View. CLINICAL INDICATION: Flank pain, ureteral stone follow-up. TECHNIQUE: AP abdomen x-ray. COMPARISON: July 10, 2017 FINDINGS: [id number] amount of formed stool is seen throughout the colon. No dilated loops of small ca wel are observed. No organomegaly is identified. Subtle 2 mm calcification is identified just to the right of midline in the right mid pelvis. The osseous structures are intact. IMPRESSION: Subtle 2 mm calcification just to the right of midline in the mid pelvis. This could reflect the dis stella right ureteral stone seen on prior CT. If more detailed evaluation is needed repeat CT is recomm ended. Large amount of formed stool throughout the colon suggesting constipation. RPTAT: AA .Librado Hurtado MD, MD Date Time Electronically viewed and signed by .Librado Hurtado MD, on 07/11/2017 10:58 .P/
[2017-07-11 14:00] VITALS: BP 140/80; RESP 20
--- NOTE | 2017-07-11 16:58 | PN ---
Date/Time of Note Date/Time of Note DATE: 07/11/17 TIME: 16:56 Assessment/Plan VTE Prophylaxis VTE Prophylaxis Intervention: SCD's Lines/Catheters IV Catheter Type (from Nrsg): Peripheral IV Assessment/Plan Assessment/Plan 1. Right distal ureteral obstructing calculus, IVF, flomax, pain management 2. Right lower lung mass, talked with the patient, will have biopsy after he returns back to [place] 3. History of pacemaker, No acute issue here 4. Acute renal injury from ureteral stone, follow up with BMP Subjective 24 Hr Interval Summary Free Text/Dictation intermittent right lower abdominal pain Exam/Review of Systems Vital Signs Vitals Vital Signs Date Time Temp Pulse Resp B/P Pulse Ox O2 Delivery O2 Flow Rate FiO2 07/11/17 14:00 98.3 61 20 140/80 97 07/08/17 08:00 Room Air Intake and Output 07/10/17 07/10/17 07/11/17 15:00 23:00 07:00 Intake Total 800 ml 995 ml Output Total 1750 ml Balance 800 ml -755 ml Exam Constitutional: alert, oriented, well developed Psych: nl mood/affect, no complaints Head: atraumatic, normocephalic Eyes: EOMI, PERRL, nl conjunctiva, nl lids ENMT: nl external ears & nose, nl lips & teeth, nl nasal mucosa & septum Neck: non-tender, supple Respiratory: clear to auscultation, normal air movement, No congested cough, No crackles/rales, No diminished breath sounds, No intercostal retraction, No labored breathing, No other, No respirations, No tactile fremitus, No wheezing Cardiovascular: nl pulses, regular rate and rhythm, No S3, No S4, No bruits, No diastolic murmur, No edema, No gallop, No irregular rhythm, No jugular venous distention (JVD), No murmurs/extra sounds, No other, No rub, No systolic murmur Gastrointestinal: nl liver, spleen, non-tender, soft, No ascites, No bowel sounds, No distended, No firm, No hepatomegaly, No mass , No other, No rebound or guarding, No splenomegaly, No surgical scars, No tender Musculoskeletal: nl extremities to inspection Extremities: normal pulses, No calf tenderness, No clubbing, No cyanosis, No edema, No other, No palpable cord, No pitting pedal edema, No tenderness Neurological: SENIOR CONSTRUCTION ESTIMATOR II-XII intact, nl mental status, nl speech, nl strength Results Result Diagram: 07/08/17 0616 07/10/17 0521 Medications Medications Current Medications Lamotrigine (Lamictal) 200 mg DAILY PO Last administered on 07/11/17 09:24; Admin Dose 200 MG; Start 07/08/17 at 09:00 Potassium Citrate (Urocit-K) 5 meq DAILY PO Last administered on 07/11/17 09: 24; Admin Dose 5 MEQ; Start 07/08/17 at 09:00 Miscellaneous Information 36 mg DAILY XX ; Start 07/08/17 at 09:00; Status UNV Famotidine 20 mg 20 mg DAILY PO Last administered on 07/11/17 09:24; Admin Dose 20 MG; Start 07/08/17 at 09:00 Sodium Chloride (NS) 1,000 ml @ 100 mls/hr Q10H IV Last administered on 13:26; Admin Dose 150 MLS/HR; Start 07/08/17 at 00:30 Tamsulosin HCl (Flomax) 0.4 mg HS PO Last administered on 07/10/17 21:50; Admin Dose 0.4 MG; Start 07/08/17 at 21:00 Morphine Sulfate (morphine) 4 mg Q4H PRN IV pain Last administered on 21:50; Admin Dose 4 MG; Start 07/08/17 at 00:30 Ondansetron HCl (Zofran Inj) 4 mg Q6H PRN IV NAUSEA AND/OR VOMITING; Start 07/15 at 00:30 Lorazepam (Ativan) 1 mg Q4H PRN PO anxiety Last administered on 07/10/17 00: 13; Admin Dose 1 MG; Start 07/08/17 at 01:30 Calcium Carbonate (Oyster Shell Calcium) 1.25 gm DAILY PO Last administered on 07/11/17 09:24; Admin Dose 1.25 GM; Start 07/09/17 at 12:00 Miscellaneous Information (*Order Clarification Bulletin) MEDICATION REQUIRES CLARIFICATI... Q8H XX ; Start 07/09/17 at 08:00 Docusate Sodium (Colace) 100 mg BID PO Last administered on 07/11/17t 09:24; Admin Dose 100 MG; Start 07/09/17 at 10:00 DAVY KUO MD Jul 11, 2017 16:58
[2017-07-11 20:00] VITALS: BP 138/76; RESP 18
[2017-07-11] MEDS: TAMSULOSIN (SR) 0.4 MG CAP PO SCH (21:39)
[2017-07-11] MEDS: LORAZEPAM 1 MG TAB PO PRN (23:22)
[2017-07-12 02:00] VITALS: BP 136/76; RESP 18
[2017-07-12 07:06] LABS: CALCIUM 8.1 mg/dl (8.4-10.2); CREATININE 1.39 mg/dl (0.61-1.24); POTASSIUM 4.2 mmol/L (3.5-5.1)
[2017-07-12 08:16] VITALS: BP 155/86; RESP 17
[2017-07-12] MEDS: FAMOTIDINE 20 MG TAB PO SCH (09:16)
[2017-07-12] MEDS: DOCUSATE SODIUM 100 MG CAP PO SCH ×2 (09:16→21:46)
[2017-07-12] MEDS: SOD CHLORIDE 0.9% 1,000 ML IV SCH ×2 (09:16→19:07)
[2017-07-12] MEDS: CALCIUM CARBONATE 1.25 GM TAB PO SCH (09:16)
[2017-07-12] MEDS: LAMOTRIGINE 100 MG TAB PO SCH (09:16)
[2017-07-12] MEDS: POTASSIUM CITRATE (SR) 5 MEQ TAB PO SCH (09:16)
--- NOTE | 2017-07-12 14:11 | PN ---
Date/Time of Note Date/Time of Note DATE: 07/12/17 TIME: 14:01 Assessment/Plan VTE Prophylaxis VTE Prophylaxis Intervention: ambulation Lines/Catheters IV Catheter Type (from [facility] Peripheral IV Urinary Cath still in place: No Assessment/Plan Chief Complaint/Hosp Course 62-year-old male with a 2 mm stone in the distal right ureter, he states he had pain last night and early this morning but the pain now is mild and he is asking if he could go home tomorrow. I did discuss with him the risks of having pain while traveling back to [place] especially that he does not remember and have not seen the stone passing and he may still have the stone to cause him the pain. I suggested to him so one could be safe if he does not pass the stone and recover at we will need to repeat the CT scan to see if the stone did pass and if not decide whether we need to intervene or not. In the meantime continue the tamsulosin and continue to strain his urine for stones. I will also repeat the urine analysis and repeated CT scan one day prior to his travel back to [place] especially that if he did not pass the stone Problems: Subjective 24 Hr Interval Summary Constitutional: no complaints Eyes: no complaints ENT: no complaints Respiratory: no complaints Cardiovascular: no complaints Gastrointestinal: no complaints Genitourinary: no complaints, No dysuria, No flank pain, No hematuria Musculoskeletal: no complaints Skin: no complaints Neurologic: no complaints Endocrine: no complaints Lymphatic: no complaints Psychological: no complaints Exam/Review of Systems Vital Signs Vitals Vital Signs Date Time Temp Pulse Resp B/P Pulse Ox O2 Delivery O2 Flow Rate FiO2 07/12/17 08:16 98.4 60 17 155/86 98 07/08/17 08:00 Room Air Intake and Output 07/11/17 07/11/17 07/12/17 15:00 23:00 07:00 Intake Total 1450 ml 1300 ml Output Total 1200 ml 600 ml Balance 250 ml 700 ml Exam Constitutional: alert, oriented Psych: no complaints Head: normocephalic Eyes: nl conjunctiva ENMT: nl external ears & nose Neck: non-tender, supple Respiratory: normal air movement Cardiovascular: regular rate and rhythm Gastrointestinal: non-tender, soft, No distended Genitourinary - Male: No CVA tenderness Musculoskeletal: nl extremities to inspection Extremities: No calf tenderness, No edema Skin: nl turgor Lymph: nl lymph nodes Results Result Diagram: 07/08/17 0616 07/12/17 0538 Results 24 hrs Laboratory Tests Test 07/12/17 05:38 Sodium Level 142 Potassium Level 4.2 Chloride Level 106 Carbon Dioxide Level 28 Anion Gap 12 Blood Urea Nitrogen 15 Creatinine 1.39 H Glucose Level 80 Calcium Level 8.1 L Imaging Free Text/Dictation KUB: FINDINGS: [id number] amount of formed stool is seen throughout the colon. No dilated loops of small bowel are observed. No organomegaly is identified. Subtle 2 mm calcification is identified just to the right of midline in the right mid pelvis. The osseous structures are intact. IMPRESSION: Subtle 2 mm calcification just to the right of midline in the mid pelvis. This could reflect the distal right ureteral stone seen on prior CT. If more detailed evaluation is needed repeat CT is recommended. Large amount of formed stool throughout the colon suggesting constipation. RPTAT: AA .Librado Hurtado MD, MD Date Time Medications Medications Current Medications Lamotrigine (Lamictal) 200 mg DAILY PO Last administered on 07/12/17 09:16; Admin Dose 200 MG; Start 07/08/17 at 09:00 Potassium Citrate (Urocit-K) 5 meq DAILY PO Last administered on 07/12/17 09: 16; Admin Dose 5 MEQ; Start 07/08/17 at 09:00 Famotidine 20 mg 20 mg DAILY PO Last administered on 07/12/17 09:16; Admin Dose 20 MG; Start 07/08/17 at 09:00 Sodium Chloride (NS) 1,000 ml @ 100 mls/hr Q10H IV Last administered on 09:16; Admin Dose 100 MLS/HR; Start 07/08/17 at 00:30 Tamsulosin HCl (Flomax) 0.4 mg HS PO Last administered on 07/11/17 21:39; Admin Dose 0.4 MG; Start 07/08/17 at 21:00 Morphine Sulfate (morphine) 4 mg Q4H PRN IV pain Last administered on 21:50; Admin Dose 4 MG; Start 07/08/17 at 00:30 Ondansetron HCl (Zofran Inj) 4 mg Q6H PRN IV NAUSEA AND/OR VOMITING; Start 07/15 at 00:30 Lorazepam (Ativan) 1 mg Q4H PRN PO anxiety Last administered on 07/11/17 23: 22; Admin Dose 1 MG; Start 07/08/17 at 01:30 Calcium Carbonate (Oyster Shell Calcium) 1.25 gm DAILY PO Last administered on 07/12/17 09:16; Admin Dose 1.25 GM; Start 07/09/17 at 12:00 Docusate Sodium (Colace) 100 mg BID PO Last administered on 07/12/17 09:16; Admin Dose 100 MG; Start 07/09/17 at 10:00 Patient Own Medication 1 ea DAILY PO ; Start 07/13/17 at 09:00 Miscellaneous Information Patients own medicat... BID@ XX ; Start at 16:00 ROGELIO KING MD Jul 12, 2017 14:11
--- NOTE | 2017-07-12 14:37 | PN ---
Date/Time of Note Date/Time of Note DATE: 07/12/17 TIME: 14:30 Assessment/Plan VTE Prophylaxis VTE Prophylaxis Intervention: SCD's Lines/Catheters IV Catheter Type (from Nrs): Peripheral IV Urinary Cath still in place: No Assessment/Plan Chief Complaint/Hosp Course Assessment/Plan: 62M with: 1. Right distal ureteral obstructing calculus, -We will increase the rate of IVF today, increased frequency of continue Flomax, pain management - follow-up urology recommendations 2. Right lower lung mass - talked with the patient, will have biopsy after he returns back to [place] at [facility] 3. History of pacemaker, No acute issue here -monitor 4. Acute renal injury -likely from ureteral stone - monitor urine output, continue IV fluids, follow up with BMP Problems: Subjective 24 Hr Interval Summary Free Text/Dictation Patient apparently still has not passed stone, asking when he can go home. Seen by urology team earlier today. Otherwise no acute events overnight. Exam/Review of Systems Vital Signs Vitals Vital Signs Date Time Temp Pulse Resp B/P Pulse Ox O2 Delivery O2 Flow Rate FiO2 07/12/17 08:16 98.4 60 17 155/86 98 07/08/17 08:00 Room Air Intake and Output 07/11/17 07/11/17 07/12/17 15:00 23:00 07:00 Intake Total 1450 ml 1300 ml Output Total 1200 ml 600 ml Balance 250 ml 700 ml Exam Constitutional: alert, oriented, well developed Psych: nl mood/affect, no complaints Head: atraumatic, normocephalic Eyes: EOMI, PERRL, nl conjunctiva, nl lids ENMT: nl external ears & nose, nl lips & teeth, nl nasal mucosa & septum Neck: non-tender, supple Respiratory: clear to auscultation, normal air movement, No congested cough, No crackles/rales, No diminished breath sounds, No intercostal retraction, No labored breathing, No other, No respirations, No tactile fremitus, No wheezing Cardiovascular: nl pulses, regular rate and rhythm, No S3, No S4, No bruits, No diastolic murmur, No edema, No gallop, No irregular rhythm, No jugular venous distention (JVD), No murmurs/extra sounds, No other, No rub, No systolic murmur Gastrointestinal: nl liver, spleen, non-tender, soft, No ascites, No bowel sounds, No distended, No firm, No hepatomegaly, No mass , No other, No rebound or guarding, No splenomegaly, No surgical scars, No tender Musculoskeletal: nl extremities to inspection Extremities: normal pulses, No calf tenderness, No clubbing, No cyanosis, No edema, No other, No palpable cord, No pitting pedal edema, No tenderness Neurological: OPERATIONS LIEUTENANT II-XII intact, nl mental status, nl speech, nl strength Results Result Diagram: 07/08/17 0616 07/12/17 0538 Results 24 hrs Laboratory Tests Test 07/12/17 05:38 Sodium Level 142 Potassium Level 4.2 Chloride Level 106 Carbon Dioxide Level 28 Anion Gap 12 Blood Urea Nitrogen 15 Creatinine 1.39 H Glucose Level 80 Calcium Level 8.1 L Medications Medications Current Medications Lamotrigine (Lamictal) 200 mg DAILY PO Last administered on 07/12/17 09:16; Admin Dose 200 MG; Start 07/08/17 at 09:00 Potassium Citrate (Urocit-K) 5 meq DAILY PO Last administered on 07/12/17 09: 16; Admin Dose 5 MEQ; Start 07/08/17 at 09:00 Famotidine 20 mg 20 mg DAILY PO Last administered on 07/12/17 09:16; Admin Dose 20 MG; Start 07/08/17 at 09:00 Sodium Chloride (NS) 1,000 ml @ 125 mls/hr Q8H IV Last administered on 09:16; Admin Dose 100 MLS/HR; Start 07/08/17 at 00:30 Morphine Sulfate (morphine) 4 mg Q4H PRN IV pain Last administered on 21:50; Admin Dose 4 MG; Start 07/08/17 at 00:30 Ondansetron HCl (Zofran Inj) 4 mg Q6H PRN IV NAUSEA AND/OR VOMITING; Start 07/15 at 00:30 Lorazepam (Ativan) 1 mg Q4H PRN PO anxiety Last administered on 07/11/17 23: 22; Admin Dose 1 MG; Start 07/08/17 at 01:30 Calcium Carbonate (Oyster Shell Calcium) 1.25 gm DAILY PO Last administered on 07/12/17 09:16; Admin Dose 1.25 GM; Start 07/09/17 at 12:00 Docusate Sodium (Colace) 100 mg BID PO Last administered on 07/12/17t 09:16; Admin Dose 100 MG; Start 07/09/17 at 10:00 Patient Own Medication 1 ea DAILY PO ; Start 07/13/17 at 09:00 Miscellaneous Information Patients own medicat... BID@10,16 XX ; Start at 16:00 Tamsulosin HCl (Flomax) 0.4 mg BID PO ; Start 07/12/17 at 21:00; Status UNV MARCELO MONIQUE Jul 12, 2017 14:37
[2017-07-12] MEDS ORDERED: morphine 2 MG INJ IV PRN ×2 (15:00→17:30)
[2017-07-12] MEDS ORDERED: HYDROmorphONE 1 MG/ML SYG IV PRN (15:00)
[2017-07-12] MEDS ORDERED: HYDROCODONE/APAP (5/325) TAB PO PRN (17:30)
[2017-07-12] MEDS ORDERED: hydrALAzine 20 MG INJ IV PRN (17:30)
[2017-07-12 20:00] VITALS: BP 163/77; RESP 19
[2017-07-12] MEDS: LORAZEPAM 1 MG TAB PO PRN (20:00)
[2017-07-12] MEDS: TAMSULOSIN (SR) 0.4 MG CAP PO SCH (21:46)
[2017-07-13] MEDS: LORAZEPAM 1 MG TAB PO PRN ×2 (01:21→21:32)
[2017-07-13 02:52] VITALS: BP 168/86; RESP 18
[2017-07-13] MEDS: SOD CHLORIDE 0.9% 1,000 ML IV SCH ×4 (05:50→23:46)
[2017-07-13 08:04] VITALS: BP 148/82; RESP 18
[2017-07-13] MEDS: FAMOTIDINE 20 MG TAB PO SCH (08:50)
[2017-07-13] MEDS: TAMSULOSIN (SR) 0.4 MG CAP PO SCH ×2 (08:50→20:46)
[2017-07-13] MEDS: LAMOTRIGINE 100 MG TAB PO SCH (08:50)
[2017-07-13] MEDS: DOCUSATE SODIUM 100 MG CAP PO SCH ×2 (08:50→20:46)
[2017-07-13] MEDS: CALCIUM CARBONATE 1.25 GM TAB PO SCH (09:00)
[2017-07-13] MEDS: CONCERTA 36 MG PO SCH (10:10)
[2017-07-13] MEDS: POTASSIUM CITRATE (SR) 5 MEQ TAB PO SCH (10:10)
--- NOTE | 2017-07-13 11:31 | PN ---
Date/Time of Note Date/Time of Note DATE: 07/13/17 TIME: 11:30 Assessment/Plan VTE Prophylaxis VTE Prophylaxis Intervention: SCD's Lines/Catheters IV Catheter Type (from Nrs): Peripheral IV Urinary Cath still in place: No Assessment/Plan Chief Complaint/Hosp Course Assessment/Plan: 62M with: 1. Right distal ureteral obstructing calculus, -Continue IVF's, Flomax BID, pain management - follow-up urology recommendations 2. Right lower lung mass -Per patient, he will have biopsy after he returns back to [place] at [facility] 3. History of pacemaker, No acute issue here -monitor 4. Acute renal injury -likely from ureteral stone - monitor urine output, continue IV fluids, follow up with BMP Problems: Subjective 24 Hr Interval Summary Free Text/Dictation Patient sleeping presently, per nursing staff has not passed stone yet, but having kiley granule-like material in his urine presently Exam/Review of Systems Vital Signs Vitals Vital Signs Date Time Temp Pulse Resp B/P Pulse Ox O2 Delivery O2 Flow Rate FiO2 07/13/17 08:04 98.0 60 18 148/82 98 Intake and Output 07/12/17 07/12/17 07/13/17 15:00 23:00 07:00 Intake Total 300 ml 1500 ml 1300 ml Output Total 900 ml 900 ml Balance 300 ml 600 ml 400 ml Exam Constitutional: alert, oriented, well developed Psych: nl mood/affect, no complaints Head: atraumatic, normocephalic Eyes: EOMI, PERRL, nl conjunctiva, nl lids ENMT: nl external ears & nose, nl lips & teeth, nl nasal mucosa & septum Neck: non-tender, supple Respiratory: clear to auscultation, normal air movement, No congested cough, No crackles/rales, No diminished breath sounds, No intercostal retraction, No labored breathing, No other, No respirations, No tactile fremitus, No wheezing Cardiovascular: nl pulses, regular rate and rhythm, No S3, No S4, No bruits, No diastolic murmur, No edema, No gallop, No irregular rhythm, No jugular venous distention (JVD), No murmurs/extra sounds, No other, No rub, No systolic murmur Gastrointestinal: nl liver, spleen, non-tender, soft, No ascites, No bowel sounds, No distended, No firm, No hepatomegaly, No mass , No other, No rebound or guarding, No splenomegaly, No surgical scars, No tender Musculoskeletal: nl extremities to inspection Extremities: normal pulses, No calf tenderness, No clubbing, No cyanosis, No edema, No other, No palpable cord, No pitting pedal edema, No tenderness Neurological: CYBER THREAT ANALYST II-XII intact, nl mental status, nl speech, nl strength Results Result Diagram: 07/12/17 0538 Medications Medications Current Medications Lamotrigine (Lamictal) 200 mg DAILY PO Last administered on 07/13/17 08:50; Admin Dose 200 MG; Start 07/08/17 at 09:00 Potassium Citrate (Urocit-K) 5 meq DAILY PO Last administered on 07/13/17 10: 10; Admin Dose 5 MEQ; Start 07/08/17 at 09:00 Famotidine 20 mg 20 mg DAILY PO Last administered on 07/13/17 08:50; Admin Dose 20 MG; Start 07/08/17 at 09:00 Sodium Chloride (NS) 1,000 ml @ 125 mls/hr Q8H IV Last administered on 05:50; Admin Dose 125 MLS/HR; Start 07/08/17 at 00:30 Ondansetron HCl (Zofran Inj) 4 mg Q6H PRN IV NAUSEA AND/OR VOMITING; Start 07/15 at 00:30 Lorazepam (Ativan) 1 mg Q4H PRN PO anxiety Last administered on 07/13/17 01: 21; Admin Dose 1 MG; Start 07/08/17 at 01:30 Docusate Sodium (Colace) 100 mg BID PO Last administered on 07/13/17 08:50; Admin Dose 100 MG; Start 07/09/17 at 10:00 Patient Own Medication 1 ea DAILY PO Last administered on 07/13/17 10:10; Admin Dose 1 EA; Start 07/13/17 at 09:00 Miscellaneous Information Patients own medicat... BID@10,16 XX ; Start at 16:00 Tamsulosin HCl (Flomax) 0.4 mg BID PO Last administered on 07/13/17 08:50; Admin Dose 0.4 MG; Start 07/12/17 at 21:00 Hydralazine HCl (Apresoline) 10 mg Q6H PRN IV IF SBP>160 mmhg Last administered on 07/12/17 19:01; Admin Dose 10 MG; Start 07/12/17 at 17:30 Morphine Sulfate (morphine) 2 mg Q4H PRN IV pain; Start 07/12/17 at 17:30 Acetaminophen/ Hydrocodone Bitart (Dalton (5/325)) 1 tab Q4H PRN PO pain Last administered on 07/13/17 02:26; Admin Dose 1 TAB; Start 07/12/17 at 17:30 Miscellaneous Information (* Miscellaneous Pharmacy Order) 1 ea QHS PRN PO insomnia; Start 07/13/17 at 21:00; Status UNV Calcium Citrate (Citracal) 950 mg DAILY PO ; Start 07/13/17 at 13:00 MARCELO MONIQUE Jul 13, 2017 11:31
[2017-07-13] MEDS: CALCIUM CITRATE 950 MG TAB PO SCH (12:45)
[2017-07-13 14:53] VITALS: BP 144/77; RESP 18
[2017-07-13 20:47] VITALS: BP 146/68; RESP 18
[2017-07-13] MEDS ORDERED: LUNESTA PO PRN (21:00)
--- NOTE | 2017-07-14 01:22 | RADRPT ---
PROCEDURE: XR Abdomen. CLINICAL INDICATION: Evaluate movement of kidney stone. TECHNIQUE: AP abdomen x-ray. COMPARISON: Plain film abdomen dated 07/11/2017. CT examination of the abdomen and pelvis dated . FINDINGS: The bowel gas pattern is normal. There is no evidence of obstruction. Previously identified obstructing calculus just outside the right ureteral vesicle junction and CT e xamination dated 07/07/2017 is not seen on today's examination, perhaps secondary to limited sensiti vity of plain film examination. No abnormal calcifications are otherwise identified. The osseus structures are unremarkable. IMPRESSION: No ureteral calculus is identified. RPTAT: [facility] Physician Daniela Date Time Electronically viewed and signed by Physician Daniela on 07/14/2017 01:22 RS/
[2017-07-14 02:52] VITALS: BP 139/74; RESP 16
[2017-07-14 07:41] LABS: BASOPHILS % 0.4 % (0.0-2.0); EOSINOPHILS # 0.1 10^3/ul (0.0-0.5); EOSINOPHILS % 1.9 % (0.0-7.0); HEMOGLOBIN 11.8 g/dl (14.0-18.0); LYMPHOCYTES # 1.1 10^3/ul (0.8-2.9); LYMPHOCYTES % 23.3 % (15.0-51.0); MEAN CORPUSCULAR HGB CONC 34.7 g/dl (32.0-37.0); MEAN PLATELET VOLUME 9.5 fl (7.4-10.4); MONOCYTE # 0.4 10^3/ul (0.3-0.9); MONOCYTES % 8.4 % (0.0-11.0); NEUTROPHILS % 65.8 % (39.0-77.0); PLATELET COUNT 229 10^3/UL (140-415); RED BLOOD COUNT 3.58 10^6/ul (4.70-6.10); RED CELL DISTRIBUTION WIDTH 12.4 % (11.5-14.5); WHITE BLOOD COUNT 4.6 10^3/ul (4.8-10.8)
[2017-07-14 08:17] LABS: CALCIUM 8.7 mg/dl (8.4-10.2); CREATININE 0.95 mg/dl (0.61-1.24); POTASSIUM 3.9 mmol/L (3.5-5.1)
[2017-07-14] MEDS: TAMSULOSIN (SR) 0.4 MG CAP PO SCH (09:00)
[2017-07-14] MEDS: DOCUSATE SODIUM 100 MG CAP PO SCH (09:00)
[2017-07-14] MEDS: POTASSIUM CITRATE (SR) 5 MEQ TAB PO SCH (09:12)
[2017-07-14] MEDS: LAMOTRIGINE 100 MG TAB PO SCH (09:12)
[2017-07-14] MEDS: FAMOTIDINE 20 MG TAB PO SCH (09:12)
[2017-07-14] MEDS: CALCIUM CITRATE 950 MG TAB PO SCH (09:12)
[2017-07-14] MEDS: CONCERTA 36 MG PO SCH (09:19)
[2017-07-14] MEDS: LORAZEPAM 1 MG TAB PO PRN (10:17)
[2017-07-14] MEDS: SOD CHLORIDE 0.9% 1,000 ML IV SCH (11:10)
[2017-07-14 11:32] VITALS: BP 162/89; RESP 20
[2017-07-14] MEDS ORDERED: TAMS-14 PO (15:00)
--- NOTE | 2017-07-14 15:01 | PDOCDIS ---
Discharge Instructions CONDITION Patient Condition: Stable HOME CARE INSTRUCTIONS: Special Diet: regular FOLLOW UP/APPOINTMENTS Follow-up Plan Follow up with your regular doctor about your abnormal lung imaging Follow up with your urologist regarding your kidney stone. Your stone evaluation lab report will hopefully be back next week PATRICIA CORTEZ MD Jul 14, 2017 15:01
--- NOTE | 2017-07-14 15:06 | DS ---
Date/Time of Note Date/Time of Note DATE: 07/14/17 TIME: 15:01 Discharge Summary Admission/Discharge Info Admit Date/Time Jul 07, 2017 at 22:06 Discharge Date/Time Discharge Diagnosis 2mm ureteral stone sp spontaneous elimination, abnormal lung imaging Patient Condition: Stable Consults urology Procedures 10.9 CT AP IMPRESSION: 1. The irregular mass-like density in the right lower lobe posteriorly measuring 3.5 x 2.2 cm. This may be benign or malignant. 2. Dual lead permanent pacemaker with leads in the right atrium and right ventricle. 3. Status post cholecystectomy. 4. Obstructing 0.2 cm calculus in the distal right ureter just above the right ureteral vesicle junction. 5. Benign left renal cyst measuring 6.6 x 5.1 cm. 6. Diverticulosis of the colon without evidence of diverticulitis. 7. Prior gastric surgery and prior transverse colon surgery. 8. Degenerative changes of the spine. 10.15 abd XR IMPRESSION: No ureteral calculus is identified. Hx of Present Illness This is a 62-year-old male with a history of left nephrolithiasis, pacemaker, gastric bypass surgery, nasal neuroblastoma status post surgical removal in 2009 and probable history of pericarditis. Patient has been at the bedside of family member that is admitted here to [facility] for the past 4 days. Today while he was at the patient's room, he started experiencing right lower quadrant abdominal pain for which he was sent to the ER. Denied nausea/vomiting, fever or chills. CT abdomen pelvis showed Obstructing 0.2 cm calculus in the distal right ureter just above the right ureteral vesicle junction, irregular mass-like density in the right lower lobe posteriorly measuring 3.5 x 2.2 cm, diverticulosis without diverticulitis and prior gastric surgery and prior transverse colon surgery. He said he was diagnosed with his left kidney/ureteral stone 5 years ago which was managed to with extracorporeal shockwave therapy. No stent was placed at that time. He also stated that about 35 years ago he was told that he had abnormal growth on the left side of his lungs. Hospital Course Pt admitted for abd pain, found to have 2mm ureteral stone. Seen by which advised supportive/non interventional care. Stone passed on its own 10.15. For pt's incidental lung lesion finding, he had already discussed the matter with his laser beam machine operator at [facility] during his stay. She advised dedicated lung imaging to be performed at her office within the next few weeks. Pt given a disc of his CT results prior to discharge. Changes from admit meds: started daily flomax to help with kidney stone elimination as etio of kidney stone not known at this time Home Meds Reported Medications Calcium Citrate* (Citracal*) 950 Mg Tab, 500 MG PO DAILY, TAB 07/08/17 Esomeprazole Mag Trihydrate (Nexium) 40 Mg Capsule.dr, 40 MG PO DAILY, #30 CAP 07/07/17 Cyanocobalamin* (Vitamin B12*) 500 Mcg Tab, 1000 MCG PO DAILY, TAB 07/07/17 Lamotrigine* (Lamotrigine*) 200 Mg Tablet, 200 MG PO DAILY, TAB 07/07/17 Cholecalciferol (Vitamin D3) (Vitamin D3) 5,000 Unit Tab.rapdis, 5000 UNIT PO DAILY 07/07/17 Potassium Citrate* (Potassium Citrate* ER) 5 Meq Tablet.sa, 5 MEQ PO DAILY, TAB.SA 07/07/17 Eszopiclone (Lunesta) 3 Mg Tablet, 3 MG PO HS Y for INSOMNIA, TAB 07/07/17 Methylphenidate HCl (Concerta) 36 Mg Tab.er.24, 36 MG PO DAILY, TAB 07/07/17 Follow-up Plan Follow up with your regular doctor about your abnormal lung imaging Follow up with your urologist regarding your kidney stone. Your stone evaluation lab report will hopefully be back next week Primary Care Provider Not On Staff Doctor Time spent on discharge: > 30 minutes Pending Labs Laboratory Tests Test 07/14/17 05:32 07/14/17 05:55 Sodium Level 141mmol/L (135-144) Potassium Level 3.9mmol/L (3.5-5.1) Chloride Level 105mmol/L (97-110) Carbon Dioxide Level 30mmol/L (21-31) Anion Gap 10 (8-16) Blood Urea Nitrogen 11mg/dl (7-20) Creatinine 0.95mg/dl (0.61-1.24) Glucose Level 78mg/dl (70-220) Calcium Level 8.7mg/dl (8.4-10.2) White Blood Count 4.610^3/ul (4.8-10.8) Red Blood Count 3.5810^6/ul (4.70-6.10) Hemoglobin 11.8g/dl (14.0-18.0) Hematocrit 34.0% (42.0-52.0) Mean Corpuscular Volume 95.0fl (82.0-101.0) Mean Corpuscular Hemoglobin 33.0pg (29.0-33.0) Mean Corpuscular Hemoglobin Concent 34.7g/dl (32.0-37.0) Red Cell Distribution Width 12.4% (11.5-14.5) Platelet Count 99995^3/UL (140-415) Mean Platelet Volume 9.5fl (7.4-10.4) Neutrophils % 65.8% (39.0-77.0) Lymphocytes % 23.3% (15.0-51.0) Monocytes % 8.4% (0.0-11.0) Eosinophils % 1.9% (0.0-7.0) Basophils % 0.4% (0.0-2.0) Nucleated Red Blood Cells % 0.0/100WBC (0.0-0.0) Neutrophils # 3.010^3/ul (1.6-7.5) Lymphocytes # 1.110^3/ul (0.8-2.9) Monocytes # 0.410^3/ul (0.3-0.9) Eosinophils # 0.110^3/ul (0.0-0.5) Basophils # 0.010^3/ul (0.0-0.1) Nucleated Red Blood Cells # 0.010^3/ul (0.0-0.0) PATRICIA CORTEZ MD Jul 14, 2017 15:05
--- NOTE | 2017-07-14 15:19 | PN ---
DATE: 07/14/2017 SUBJECTIVE: Patient is feeling much better. In fact, he did pass a stone last night and he denies any pain; however, he does have diarrhea today. OBJECTIVE: VITAL SIGNS: His temperature is 97.6, pulse 75, respirations 20, blood pressure 162/89. ABDOMEN: Soft. EXTREMITIES: There is no tenderness. The stone is exactly the same size that was seen on the scan and the stone will be sent for analysis. LABORATORY DATA: CBC today shows a white count of 4.6, hemoglobin 11.8, hematocrit 34.0, BUN is 11, creatinine 0.95, which is back to normal as it did go up to 1.39 when the stone was still obstructi ng. Electrolytes are normal. IMPRESSION: The patient did have a stone that he passed and the stone will be sent for analysis and from a urological standpoint, the patient could be discharged today. Dictated By: ROGELIO SANCHEZ/KATHE Conf#: [id number] DID#: [id number]
== END 2017-07-14 15:51 | disposition home or self-care (01) | DRG 694 ==
LOC: E/R 19:29 → PP2 22:06
PROVIDERS: ADMIT Internal Medicine; ATTEND Internal Medicine
DX: N20.1 Calculus of ureter (principal); N17.9 Acute kidney failure, unspecified; N28.1 Cyst of kidney, acquired; R91.8 Other nonspecific abnormal finding of lung field; Z95.0 Presence of cardiac pacemaker; M47.9 Spondylosis, unspecified
CPT/HCPCS: 36415; 74000; 74176; 76775; 80048; 80053; 81001; 82355; 83690; 83735; 84100; 85025; 87086; 90686; 96374; 96375; J0360; J1170; J1885; J2060; J2270; J2405; J7030; J7040